=== PATIENT | female | born 1985 | race Hispanic/Latino ===

== ENCOUNTER 2017-12-27 21:32 | Day surgery (SDC) | payer MEDICAID, OTHER ==
[2017-12-27 22:20] LABS: #Eosinphils 0.1 thou/uL (0.0-0.7); #Lymphocytes 1.6 thou/uL (1.20-3.40); #Monocytes 0.7 thou/uL (0.11-0.59); #Neutrophils 5.6 thou/uL (1.40-6.50); %Basophils 0.4 % (0.0-1.0); %Eosinophils 1.5 % (0.0-10.0); %Lymphocytes 20.2 % (21.0-51.0); %Monocytes 9.1 % (0.0-10.0); %Neutrophils 68.8 % (42.0-75.0); Mean Corpuscular HGB CONC 32.6 g/dL (32.0-36.0); Mean Corpuscular Hemoglobin 29.2 pg (27.0-31.0); Mean Corpuscular Volume 89.4 fL (78.0-98.0); Mean Platelet Volume 7.6 fL (7.4-10.4); Platelet Count 249 thou/uL (130-400); RBC Distribution Width 12.2 % (11.5-14.5); Red Blood Cell (RBC) Count 4.44 mill/uL (4.20-5.40); White Blood Cell (WBC) Count 8.1 thou/uL (4.8-10.8)
[2017-12-27] MEDS ORDERED: Morphine 4 MG/ML VIAL ONE (23:14)
[2017-12-27] MEDS ORDERED: Misoprostol 200 MCG TAB ONE (23:31)
[2017-12-27] MEDS ORDERED: Fentanyl 100 MCG/2 ML VIAL ONE (23:32)
[2017-12-28] MEDS ORDERED: Oxytocin 10 UNITS/ML VIAL ONE (00:25)
[2017-12-28] MEDS ORDERED: Promethazine HCl 25 MG/ML VIAL ONE (01:14)
[2017-12-28] MEDS ORDERED: Meperidine HCl/PF 25 MG/ML VIAL ONE (01:22)
--- NOTE | 2017-12-28 02:20 | HP ---
DATE OF EVALUATION: 12/27/2017 REGULAR PHYSICIAN: [facility]. EVALUATING PHYSICIAN: Dejon Zepeda M.D. CHIEF COMPLAINT: Bleeding cramping and passage of tissue at home. HISTORY OF PRESENT ILLNESS: Ms. Vallecillo is a 32-year-old G1, P0 AB1 with a reported rhianna mated date of confinement of 07/09/2018 by a certain last menstrual period of 10/03/2017 who states t hat she was at [facility] earlier today and had 2 ultrasounds that showed no heart ton es. She states that she had bleeding and passage of tissue at home after that time. She brings with her material from home that appears to be an intact fetus. Since that time, she has continued to mercado ve bleeding and cramping. PAST OBSTETRICAL HISTORY: Includes one vaginal delivery at term and one miscarriage. PAST MEDICAL HISTORY: None. PAST SURGICAL HISTORY: Hernia as a child. CURRENT MEDICATIONS: None. ALLERGIES: No known allergies. SOCIAL HISTORY: She denies tobacco, alcohol, or drug use. FAMILY HISTORY: Unremarkable. REVIEW OF SYSTEMS: She denies nausea, vomiting, fever or chills. PHYSICAL EXAMINATION: VITAL SIGNS: In the ER, her vital signs are stable. She is afebrile. CHEST: Clear to auscultation. CARDIOVASCULAR: Regular rate and rhythm. ABDOMEN: Soft and nontender. There is no palpable fundus above the umbilicus. PELVIC: There is tissue in the vagina with moderate amount of bleeding seen. LABORATORY DATA: On CBC, her white count is 8.1. Her hemoglobin is 13.0 and 39.7. Her platelets ar e 249,000. She is O positive with a negative antibody screen. ASSESSMENT: Incomplete . PLAN: At this time, we will take her to the operating room for suction D&C to remove all remaining p lacental fragments. The risks and benefits of this approach have been discussed with her. She under stands the inherent risks of anesthesia, bleeding, infection as well as damage to adjacent organs, re quiring repair, removal or transfusion. She accepts all of these and wishes to proceed.
--- NOTE | 2017-12-28 02:29 | OP ---
DATE OF PROCEDURE: 12/28/2017 PREOPERATIVE DIAGNOSIS: Incomplete . POSTOPERATIVE DIAGNOSIS: Incomplete . PROCEDURE: Suction curettage. SURGEON: Dejon Zepeda M.D. ANESTHESIA: IV sedation. ESTIMATED BLOOD LOSS: 200 mL. DRAINS: None. TECHNIQUE IN DETAIL: After good anesthesia was given, the patient was prepped and draped in the dorsal lithotomy position using the candy cane stirrups. The patient was prepped and draped. The bimanual exam showed the uterus to be approximately 8 weeks in size. There was a large clot of products of conception that was passing through the cervix into the vagina. This was removed with ring forceps. An 8 mm Vacurette was then removed through all quadrants to remove remaining placental fragments. A sharp curet was then passed through all quadrants and no further fragments were obtained. All instruments were then removed from the vagina. Sponge and instrument counts were correct. The patient tolerated the procedure well and was taken to the recovery room in good condition. CHELE
[2017-12-28] MEDS ORDERED: Ondansetron PF 4 MG/2 ML Vial ONE (14:21)
[2017-12-28] MEDS ORDERED: PROPOFOL 200 MG/20 ML VIAL ONE (14:21)
[2017-12-28] MEDS ORDERED: Glycopyrrolate 0.2 MG/ML 5 ML SYRINGE ONE (14:21)
[2017-12-28] MEDS ORDERED: PHENYLEPHRINE-NS 100 MCG/ML 10 ML SYRINGE ONE (14:21)
[2017-12-28] MEDS ORDERED: Lidocaine 1% PF 5 ML VIAL ONE (14:21)
== END 2017-12-28 02:43 | disposition home or self-care (01) ==
LOC: ERS 21:32 → ER/OP 23:53 → SDC/OP 12-28 00:03
PROVIDERS: ATTEND Obstetrics & Gynecology
PROC: 10D17ZZ Extraction of Products of Conception, Retained, Via Natural or Artificial Opening (ICD-10-PCS; principal; 2017-12-28)
DX: O03.1 Delayed or excessive hemorrhage following incomplete spontaneous abortion (principal)
CPT/HCPCS: 36415; 84702; 85025; 86850; 86900; 86901; 88305; 96374; J2001; J2175; J2270; J2405; J2550; J2590; J2704; J3010

== ENCOUNTER 2020-03-28 10:59 | Observation (INO) | payer OTHER, SELFPAY ==
[2020-03-28] MEDS ORDERED: hydrALAZINE 20 MG/ML VIAL SLOW IVP PRN (11:10)
--- NOTE | 2020-03-28 11:15 | PDOC.FPROB ---
FMR OB H&P: HPI - History of Present Illness Chief Complaint: contractions Indentification: 34 yo @ 33.0 wks by 17.4 wk sono History of Present Illness: 34 yo F presents for vaginal contractions that started 3 to 4 days ago and have been regular every 5-15 minutes since yesterday morning. She also reports vaginal pressure. She reports good movement, no LOF, foul smelling discharge with intercourse and spotting 5 days ago that has resolved. She has been eating and drinking well. No fevers/chills or cough. She does report occasional headache and looser stools today but denies diarrhea. Last intercourse was 3 days ago. Denies having anything intravaginal since that time. 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 She does not know if they have had genetic testing. FMR OB H&P: Medications - Current Home Medications: Medication Instructions Recorded Confirmed Type Famotidine 10 mg PO DAILY 03/28/20 03/28/20 History Hydroxyprogesterone Caproat/Pf 1 ml IM SEEPHYS 03/28/20 03/28/20 History [[place] 275 mg/1.1 ml Autoinjct] Mv-Mn/Iron/FA/Herbal/Digestive 1 tablet PO DAILY 03/28/20 03/28/20 History [ One Tablet] Vits96/Iron Fum/Folic 1 each PO DAILY 03/28/20 03/28/20 History [ Tablet] Allergies/Adverse Reactions: Allergies Allergy/AdvReac Type Severity Reaction Status Date / Time No Known Allergies Allergy Unverified 03/28/20 11:52 FMR OB H&P: ROS - Review of Systems General: denies: fever/chills Eyes: denies: eye pain, vision changes ENT: denies: nasal congestion, rhinorrhea, ear pain, sore throat Cardiovascular: reports: palpitation. denies: chest pain Respiratory: denies: cough, congestion, shortness of breath Gastrointestinal: denies: nausea, vomiting, diarrhea, constipation Genitourinary (Female): reports: vaginal bleeding (vaginal spotting 6 days ago), contractions, vaginal pressure. denies: dysuria, hematuria, vaginal discharge Musculoskeletal: reports: other (low back pain, pain in bilateral thighs) Neurologic: denies: numbness, weakness Integumentary: denies: itching, lesions Psychological: denies: depression, anxiety FMR OB H&P: Vital Signs - Maternal Vital signs: BP 110/59 P80 O2 100% on RA - Heart Tones Baseline: 120 Variability: moderate Acceleration: absent Deceleration: absent [place] contractions every: q2min FMR OB H&P: Physical Exam - Physical Exam General: NAD, awake, alert and oriented HEENT: normocephalic and atraumatic, PERRLA, EOMI, MMM, conjunctiva clear, no scleral icterus, grossly normal vision, grossly normal hearing, oropharynx clear, good dention Neck: supple, FROM, trachea midline Heart: RRR, normal S1/S2, no murmurs/rubs/gallops, pulses present, no edema General: CTAB, no respiratory distress, good air movement, no rales/rhonchi Abdomen: soft, gravid, non-tender, bowel sound present Musculoskeletal: pulses present, FROM in all four extremities, no misalignment/asymmetry, no atrophy Neurological: no focal deficit Skin: no rash, good tugor, capillary refill <2 seconds Lymphatic: no unusual bruising or bleeding, no purpura Psychiatric: intact recent and remote memory - Pelvic Exam Vulva: normal hair distribution FMR OB H&P: A/P Discussion: Date/Time: 03/28/20 1113 34 yo @ 33.0 wks by 17.4 wk brendan presents for labor r/o labor r/o -FHTs- moderate, baseline 120, no accels or decels, cxns q2-3 min -FFN collected and cervical length -PCP asked to collect GBS swab -VP3 due to hx of BV and yeast infection -give 1L LR -UA, reflex culture pending -Anterior placenta on previous imaging at [facility] -SVE: fingertip/0/-3 -Recheck SVE in 4 hours to monitor for change Wade Price MD PGY3 This H&P was discussed with Dr. Velasco who agree with the above documentation and plan. Addendum - Attending - Attending Attestation Date/Time: 03/30/201944 I personally evaluated the patient and discussed the management with Dr. Price on 03/28/20. I agree with the History, Examination, Assessment and Plan documented above with any addition or exceptions noted below.
[2020-03-28 11:58] VITALS: BMI 21.2
--- NOTE | 2020-03-28 12:37 | ULT ---
LIMITED OB ULTRASOUND: INDICATION: Assessment of cervical length is requested. FINDINGS/IMPRESSION: Cervical length is recorded at 4.17 cm. The fetus was not evaluated. POS: OFF
[2020-03-28 13:12] LABS: Fetal Fibronectin POSITIVE (Negative)
[2020-03-28 13:13] LABS: FFN Internal QC Analyzer PASS (PASS); FFN Internal QC Cassette PASS (PASS)
[2020-03-28] MEDS ORDERED: Betamet Acet/Betamet Na Ph 30 MG/5 ML VIAL ONE (13:49)
[2020-03-28] MEDS ORDERED: Betamet Acet/Betamet Na Ph 30 MG/5 ML VIAL IM SCH (14:00)
[2020-03-28 14:05] LABS: Bacteria/HPF None Seen HPF (None Seen); Bilirubin Negative (Negative); Blood, Urine Negative (Negative); Clarity Clear (Clear); Glucose, Urine (Dipstick) Normal (Negative); Ketone, Urine 20 mg/dL (Negative); Leukocyte Negative Leu/uL (Negative); Nitrite Negative (Negative); Protein, Urine (Dipstick) Negative (Neg-Trace); RBC/HPF None Seen HPF (0-3); Specific Gravity, Urine 1.004 (1.002-1.036); Squamous Epithelial 0-3 HPF (0-3); Urobilinogen Normal mg/dL (Less than 2); WBC/HPF 0-3 HPF (0-3)
[2020-03-28 14:07] LABS: Urine Culture Reflex No No
--- NOTE | 2020-03-28 14:48 | PDOC.BPN ---
- Brief Progress Note Encounter Date: 03/28/20 Encounter Time: 14:00 Cervical length 4.2 cm FFN positive Patient continues to contract [id number]. UA still pending. Second liter of fluid is being administered. Patient FFN is positive with previous hx of delivery. Will administer celestone. Plan to recheck SVE in 2 hours.
[2020-03-28] MEDS ORDERED: Acetaminophen 500 MG TAB PO SCH ×2 (15:00→15:15)
[2020-03-28] MEDS ORDERED: Promethazine HCl 25 MG/ML VIAL IM PRN (17:12)
[2020-03-28] MEDS ORDERED: Ondansetron PF 4 MG/2 ML Vial IVP PRN (17:12)
[2020-03-28] MEDS ORDERED: Acetaminophen 500 MG TAB PO PRN (17:12)
--- NOTE | 2020-03-28 17:16 | PDOC.BPN ---
- Brief Progress Note Encounter Date: 03/28/20 Encounter Time: 17:00 34 yo @ 33.0 wks by 17.4 wk sono presents for labor r/o labor -FHTs- baseline 130, moderate, accels present no decels, cxn q3 min -FFN+, Cervical length 4.2 cm -GBS swab collected -Continue LR @ 125 ml/hr -UA, reflex culture pending -Anterior placenta on previous imaging at [facility] -SVE: fingertip/th/hi @ 1230 2/th/hi @ 1700, vertex on bedside sono -Recheck in 2 hours Vaginal candidiasis -VP3 collected, will treat empirically with topical clotrimazole Bacterial Vaginosis -hx of BV, reports foul smelling order with intercourse, will treat empirically with oral metronidazole - VP3 pending Wade Price MD PGY3
[2020-03-28] MEDS ORDERED: NIFEdipine 10 MG CAP PO SCH (18:00)
[2020-03-28 18:10] LABS: Hemoglobin 12.2 g/dL (12.0-16.0); Mean Corpuscular HGB CONC 33.1 g/dL (32.0-36.0); Mean Corpuscular Hemoglobin 30.8 pg (27.0-31.0); Mean Corpuscular Volume 93.1 fL (78.0-98.0); Mean Platelet Volume 10.9 fL (7.4-10.4); Platelet Count 200 thou/uL (130-400); RBC Distribution Width 12.5 % (11.5-14.5); Red Blood Cell (RBC) Count 3.95 mill/uL (4.20-5.40); White Blood Cell (WBC) Count 7.9 thou/uL (4.8-10.8)
[2020-03-28 19:09] LABS: Syphilis Antibody Nonreactive (Nonreactive); Syphilis Antibody Index 0.03 S/CO (<1.00 Non-Reactive)
[2020-03-28 19:09] LABS: HBSAg Index 0.24 S/CO (0-0.99); Hep B Surf Ag Non-Reactive S/CO (NonReactive)
[2020-03-28] MEDS ORDERED: Clotrimazole 2% 3 Day Vag Cr 22.2 GM TUBE VAG SCH (21:00)
[2020-03-28] MEDS ORDERED: metroNIDAZOLE 500 MG TAB PO SCH (21:00)
[2020-03-28] MEDS: Lactated Ringer's 1,000 ML IV SCH (21:58)
[2020-03-29 04:21] LABS: SARS-CoV-2 PCR by NAA Not Detected (NotDetected)
[2020-03-29] MEDS: Lactated Ringer's 1,000 ML IV SCH (05:25)
--- NOTE | 2020-03-29 07:19 | PDOC.FM ---
- Subjective Subjective: Patient is feeling well this morning, she ate breakfast. Her headache is resolved. Her back pain is improved. She reports she is still feeling contractions and vaginal pressure, however they have spaced out to every 5-15 minutes. Denies chest pain, palpitation, SOB, cough. - Objective Vital Signs & Weight: Vital Signs (12 hours) Temp Pulse Resp BP 03/29/20 01:40 98.5 F 71 16 97/52 L 03/28/20 19:30 98.7 F 81 18 98/56 L Weight Weight 58.06 kg Result Diagrams: 03/28/20 17:59 Phys Exam - Physical Examination Constitutional: NAD Respiratory: no wheezing, clear to auscultation bilateral Cardiovascular: RRR, no significant murmur Gastrointestinal: soft gravid Musculoskeletal: no edema, pulses present Neurological: non-focal, moves all 4 limbs Psychiatric: normal affect, A&O x 3 Skin: normal turgor, cap refill <2 seconds Dx/Plan - Plan Plan: 34 yo @ 33.1 wks by 17.4 wk sono presented for labor r/o. Hx of delivery at 36.5 wks. labor r/o -NST reactive, cxns currently q5-15 minutes -FFN+, Cervical length 4.2 cm -GBS swab pending -VP3 negative -GC/C pending -Will try to add mycoplasma genitalium send out lab -U culture pending -Anterior placenta on previous imaging at [facility] -SVE: fingertip/th/hi @ 1230 /hi @ 1700, vertex on bedside sono /hi @ 1930 -Plan to recheck SVE later today. 2nd dose of steroids this afternoon at 1400. Plan to DC to home after that if SVE unchanged. Vaginal candidiasis and BV ruled out -VP3 negative, antibiotics stopped Wade Price MD PGY3 Addendum - Attending - Attending Attestation Date/Time: 03/29/20 1250 I personally evaluated the patient and discussed the management with Dr. Price I agree with the History, Examination, Assessment and Plan documented above with any addition or exceptions noted below. 34 yo female at 33.1 wks by 17.4 wk sono with hx of PTL/PTD at 36 wks on 17-OHP now with contractions. Patient continued to do well overnight. Dehydration resolved. No source of infection identified to date. Received BMZ x1. Scheduled to receive BMZ #2 later today. Awaiting send out labs but so far workup is negative. Will repeat exam prior to d/c. Will schedule close follow up outpatient. Saulo
[2020-03-29 08:15] VITALS: BP 110/61; TEMP 98.6
[2020-03-29 12:10] LABS: Reference Lab Name LABCORP
--- NOTE | 2020-03-29 13:03 | PDOC.OBAPN ---
FMR OB AP PN: Sub - Interval History Hospital Day: 1 Chief Complaint: contractions Indentification: 34 yo female at 33.0 wks by 17.4 wk sono Interval History: Reports contractions but has improved and spaced out. Feels dizzy from meds FMR OB AP PN: Obj - Maternal Vital signs: reviewed. - Heart Tones Baseline: 135 Variability: moderate Acceleration: present Deceleration: absent Category: category 1 [place] contractions every: Irregular FMR OB AP PN: Exam - Physical Exam General: NAD, awake, alert and oriented HEENT: normocephalic and atraumatic, EOMI, MMM Abdomen: soft, gravid, fundus(cm) (32), non-tender Deviation from normal: Lower abdominal hernia or rectus diastasis Psychiatric: normal mood and affect - Pelvic Exam Vulva: normal hair distribution Cervix: no blood SVE: 1/thick/high/posterior/medium Membranes: intact FMR OB AP PN: Data - Labs Lab results: Laboratory Results - last 24 hr 03/28/20 03/28/20 03/28/20 12:10 13:26 17:56 WBC RBC Hgb Hct MCV MCH MCHC RDW Plt Count MPV Urine Color Colorless Urine Clarity Clear Urine pH 8.0 Ur Specific [place] 1.004 Urine Protein Negative Urine Glucose (UA) Normal Urine Ketones 20 A Urine Blood Negative Urine Nitrite Negative Urine Bilirubin Negative Urine Urobilinogen Normal Ur Leukocyte Esterase Negative Urine RBC None Seen Urine WBC 0-3 Ur Squamous Epith Cells 0-3 Urine Bacteria None Seen Urine Culture Reflexed No Syphilis IgG/IgM Ab Hep Bs Antigen Non-Reactive SARS CoV-2 Rapid Source SARS-CoV-2 RNA (ZAIRE) Fibronectin POSITIVE Miscellaneous Test Ref Lab Test Name Blood Type Antibody Screen 03/28/20 03/28/20 03/28/20 17:59 17:59 17:59 WBC 7.9 RBC 3.95 L Hgb 12.2 Hct 36.8 MCV 93.1 MCH 30.8 MCHC 33.1 RDW 12.5 Plt Count 200 MPV 10.9 H Urine Color Urine Clarity Urine pH Ur Specific [place] Urine Protein Urine Glucose (UA) Urine Ketones Urine Blood Urine Nitrite Urine Bilirubin Urine Urobilinogen Ur Leukocyte Esterase Urine RBC Urine WBC Ur Squamous Epith Cells Urine Bacteria Urine Culture Reflexed Syphilis IgG/IgM Ab Nonreactive Hep Bs Antigen SARS CoV-2 Rapid Source SARS-CoV-2 RNA (ZAIRE) Fibronectin Miscellaneous Test Ref Lab Test Name Blood Type O POSITIVE Antibody Screen NEGATIVE 03/28/20 03/29/20 18:01 11:15 WBC RBC Hgb Hct MCV MCH MCHC RDW Plt Count MPV Urine Color Urine Clarity Urine pH Ur Specific [place] Urine Protein Urine Glucose (UA) Urine Ketones Urine Blood Urine Nitrite Urine Bilirubin Urine Urobilinogen Ur Leukocyte Esterase Urine RBC Urine WBC Ur Squamous Epith Cells Urine Bacteria Urine Culture Reflexed Syphilis IgG/IgM Ab Hep Bs Antigen SARS CoV-2 Rapid Source Nasopharyngeal Swab SARS-CoV-2 RNA (ZAIRE) Not Detected Fibronectin Miscellaneous Test [facility] Ref Lab Test Name M GENITALIUM Blood Type Antibody Screen - Imaging Imaging: TVUS images reviewed. CL measures between 3.5 to 4 cm. No evidence of funneling but unsure if test done. Os appears closed on sono or .5 to 1 cm. FMR OB AP PN: A/P - Problem List (1) History of labor, current Current Visit: Yes Status: Resolved Code(s): O09.219 - SUPRVSN OF PREG W HISTORY OF PRE-TERM LABOR, UNSP TRIMESTER Qualifiers: Trimester: third trimester Qualified Code(s): O09.213 - Supervision of with history of pre-term labor, third trimester Assessment and Plan: Patient has been receiving treatment with CL screening (now complete) and 17-OHP weekly injections. No prior complications this . At this time patient does not appear to be in labor. However, she is having contractions with questionable cervical change. BMZ course for FLM was started. Incomplete PTL/PTC workup started. Will add vaginal swabs and urine studies. Monitor overnight. Appropriate FHTs. (2) contractions Current Visit: Yes Status: Acute Code(s): O47.9 - FALSE LABOR, UNSPECIFIED Assessment and Plan: Continue to monitor overnight due to history and questionable cervical change. No evidence of labor on my exam. BMZ course started along with tocolytics. Will stop tocolytics but continue BMZ course. Likely underlying infection or inflammation as cause. Swabs collected and sent. Continue 17-OHP injections. Discussed with patient and she agrees. Continue IVFs for now due to concern for dehydration previously. Continue frequent monitoring throughout the night q 4 to 6. Disposition: Keep overnight. Reevalute need for hospitalization in the morning. Signature: Saulo
--- NOTE | 2020-03-29 13:35 | PDOC.OBAPN ---
FMR OB AP PN: Sub - Interval History Hospital Day: 2 Chief Complaint: Contractions Interval History: Contractions have now resolved FMR OB AP PN: Obj - Heart Tones Baseline: 150 Variability: moderate Acceleration: present Deceleration: absent Category: category 1 [place] contractions every: None FMR OB AP PN: Exam - Physical Exam General: NAD General: no respiratory distress Abdomen: gravid Psychiatric: normal mood and affect FMR OB AP PN: Data - Labs Lab results: Laboratory Results - last 24 hr 03/28/20 03/28/20 03/28/20 13:26 17:56 17:59 WBC RBC Hgb Hct MCV MCH MCHC RDW Plt Count MPV Urine Color Colorless Urine Clarity Clear Urine pH 8.0 Ur Specific [place] 1.004 Urine Protein Negative Urine Glucose (UA) Normal Urine Ketones 20 A Urine Blood Negative Urine Nitrite Negative Urine Bilirubin Negative Urine Urobilinogen Normal Ur Leukocyte Esterase Negative Urine RBC None Seen Urine WBC 0-3 Ur Squamous Epith Cells 0-3 Urine Bacteria None Seen Urine Culture Reflexed No Syphilis IgG/IgM Ab Nonreactive Hep Bs Antigen Non-Reactive SARS CoV-2 Rapid Source SARS-CoV-2 RNA (ZAIRE) Miscellaneous Test Ref Lab Test Name Blood Type Antibody Screen 03/28/20 03/28/20 03/28/20 17:59 17:59 18:01 WBC 7.9 RBC 3.95 L Hgb 12.2 Hct 36.8 MCV 93.1 MCH 30.8 MCHC 33.1 RDW 12.5 Plt Count 200 MPV 10.9 H Urine Color Urine Clarity Urine pH Ur Specific [place] Urine Protein Urine Glucose (UA) Urine Ketones Urine Blood Urine Nitrite Urine Bilirubin Urine Urobilinogen Ur Leukocyte Esterase Urine RBC Urine WBC Ur Squamous Epith Cells Urine Bacteria Urine Culture Reflexed Syphilis IgG/IgM Ab Hep Bs Antigen SARS CoV-2 Rapid Source Nasopharyngeal Swab SARS-CoV-2 RNA (ZAIRE) Not Detected Miscellaneous Test Ref Lab Test Name Blood Type O POSITIVE Antibody Screen NEGATIVE 03/29/20 11:15 WBC RBC Hgb Hct MCV MCH MCHC RDW Plt Count MPV Urine Color Urine Clarity Urine pH Ur Specific [place] Urine Protein Urine Glucose (UA) Urine Ketones Urine Blood Urine Nitrite Urine Bilirubin Urine Urobilinogen Ur Leukocyte Esterase Urine RBC Urine WBC Ur Squamous Epith Cells Urine Bacteria Urine Culture Reflexed Syphilis IgG/IgM Ab Hep Bs Antigen SARS CoV-2 Rapid Source SARS-CoV-2 RNA (ZAIRE) Miscellaneous Test [facility] Ref Lab Test Name M GENITALIUM Blood Type Antibody Screen FMR OB AP PN: A/P Disposition: 34 yo @ 33.1 wks by 17.4 wk brendan presented for labor r/o. Hx of delivery at 36.5 wks. labor r/o -NST reactive, cxns previously q5-15 minutes now resolved -FFN+, Cervical length 4.2 cm -GBS swab pending -VP3 negative -GC/C pending -Will try to add mycoplasma genitalium send out lab -U culture pending. Negative at 12 hours -Anterior placenta on previous imaging at [facility] -SVE: fingertip/th/hi @ 1230 /hi @ 1700, vertex on bedside sono /hi @ 1930 -Strip review: cat 1 (+ accels, no decels, mod variability, baseline 130). No contractions present -BMZ #2 scheduled to be given at 1400. Plan to DC to home after that if SVE unchanged. Vaginal candidiasis and BV ruled out -VP3 negative, antibiotics stopped Discussion: Date/Time: 03/29/20 7415 Addendum - Attending - Attending Attestation Date/Time: 03/29/20 1048 I personally evaluated the patient and discussed the management with Dr. Cox I agree with the History, Examination, Assessment and Plan documented above with any addition or exceptions noted below. Repeat exam unchanged. Patient still with intermittent contractions. Infection workup negative thus far. Some swabs pending. Completed BMZ course. Strict precautions discussed. Will follow up closely in clinic. Consider repeat CL next week due to patient's anxiety. Continue 17-OHP until 36.6 wks. Ok to d/c to home. Saulo
--- NOTE | 2020-03-29 15:32 | PDOC.OBAPN ---
FMR OB AP PN: Sub - Interval History Chief Complaint: Contractions Indentification: 34 yo female at 33.0 wks by 17.4 wk sono Interval History: Contractions spaced out, lightheadedness improved FMR OB AP PN: Obj - Maternal Vital signs: Reviewed, BP 98/54 - Heart Tones Variability: moderate Acceleration: present Category: category 1 [place] contractions every: irregular FMR OB AP PN: Exam - Physical Exam General: NAD, awake, alert and oriented HEENT: grossly normal vision, grossly normal hearing Heart: no edema General: no respiratory distress FMR OB AP PN: Data - Labs Lab results: Laboratory Results - last 24 hr 03/28/20 03/28/20 03/28/20 17:56 17:59 17:59 WBC RBC Hgb Hct MCV MCH MCHC RDW Plt Count MPV Syphilis IgG/IgM Ab Nonreactive Hep Bs Antigen Non-Reactive SARS CoV-2 Rapid Source SARS-CoV-2 RNA (ZAIRE) Miscellaneous Test Ref Lab Test Name Blood Type O POSITIVE Antibody Screen NEGATIVE 03/28/20 03/28/20 03/29/20 17:59 18:01 11:15 WBC 7.9 RBC 3.95 L Hgb 12.2 Hct 36.8 MCV 93.1 MCH 30.8 MCHC 33.1 RDW 12.5 Plt Count 200 MPV 10.9 H Syphilis IgG/IgM Ab Hep Bs Antigen SARS CoV-2 Rapid Source Nasopharyngeal Swab SARS-CoV-2 RNA (ZAIRE) Not Detected Miscellaneous Test [facility] Ref Lab Test Name M GENITALIUM Blood Type Antibody Screen FMR OB AP PN: A/P Discussion: Date/Time: 03/29/20 1532 contractions - Patient unlikely to be in labor - lightheadedness improving, likely related to nifedipine, BP stable, dc nifedipine - Contractions improving, patient overall feeling better - Continue BMZ therapy - Will hold off on SVE unless there is change in condition This H&P was discussed with Dr. Fierro who agree with the above documentation and plan.
--- NOTE | 2020-03-29 15:41 | PDOC.OBAPN ---
FMR OB AP PN: Sub - Interval History Indentification: 34 yo female at 33.1 wks by 17.4 wk sono Interval History: No acute events, patient doing well, resting FMR OB AP PN: Obj - Maternal Vital signs: Reviewed, AFVSS - Heart Tones Variability: moderate Acceleration: present Deceleration: absent Category: category 1 [place] contractions every: irregular FMR OB AP PN: Data - Labs Lab results: Laboratory Results - last 24 hr 03/28/20 03/28/20 03/28/20 17:56 17:59 17:59 WBC RBC Hgb Hct MCV MCH MCHC RDW Plt Count MPV Syphilis IgG/IgM Ab Nonreactive Hep Bs Antigen Non-Reactive SARS CoV-2 Rapid Source SARS-CoV-2 RNA (ZAIRE) Miscellaneous Test Ref Lab Test Name Blood Type O POSITIVE Antibody Screen NEGATIVE 03/28/20 03/28/20 03/29/20 17:59 18:01 11:15 WBC 7.9 RBC 3.95 L Hgb 12.2 Hct 36.8 MCV 93.1 MCH 30.8 MCHC 33.1 RDW 12.5 Plt Count 200 MPV 10.9 H Syphilis IgG/IgM Ab Hep Bs Antigen SARS CoV-2 Rapid Source Nasopharyngeal Swab SARS-CoV-2 RNA (ZAIRE) Not Detected Miscellaneous Test [facility] Ref Lab Test Name M GENITALIUM Blood Type Antibody Screen FMR OB AP PN: A/P Discussion: Date/Time: 03/29/20 1540 contractions - Patient unlikely to be in labor, overall feeling better, minimal lightheadedness, resting - Contractions irregular on monitor, spaced out per patient - Continue BMZ therapy - Will hold off on SVE unless there is change in condition This H&P was discussed with Dr. Fierro who agree with the above documentation and plan.
[2020-03-29 20:15] LABS: Chlamydia by PCR Not Detected (NotDetected); GC by PCR Not Detected (NotDetected)
--- NOTE | 2020-03-30 11:05 | DIS ---
DATE OF ADMISSION: 03/28/2020 DATE OF DISCHARGE: 03/29/2020 CONSULTS: None. PROCEDURES: ultrasound 03/28/2020. Cervical length of 4.17 cm. PRIMARY DIAGNOSIS: labor, ruled out. SECONDARY DIAGNOSIS: None. DISCHARGE MEDICATIONS: 1. Famotidine 10 mg p.o. daily. 2. Hydroxyprogesterone/Partridge one injection weekly. 3. vitamin 1 p.o. daily. 4. Multivitamin one p.o. daily. DISCONTINUED MEDICATIONS: None. HISTORY OF PRESENT ILLNESS/HOSPITAL COURSE: A 34-year-old, G4, P 0-1-2-0 at 33.0 weeks by a 17.4 week ultrasound, presented for vaginal contractions that have been occurring for 3 or 4 days and had become more irregular every 5-15 minutes for the day prior to admission. She is also reporting vaginal pressure. She also reported spotting 5 days prior. She denied any flu-like symptoms. She was having headache on admission. However, her blood pressures were normal. Her last Radha injection had been that day. The patient has a history of delivery at 36 and 5 weeks. The patient was tested for a urine infection. UA was normal. However, urine culture is still pending at this time. Gonorrhea, chlamydia, and syphilis were negative. VP3 was negative. Mycoplasma genitalium was collected and those results are pending. The patient was fluid rehydrated. She was given a course of steroids prior to discharge. She received two doses 24 hours apart. Her cervix had not changed to 30% effaced and high from 7:30 PM on admission day to the afternoon on the day of discharge. She was sent home with precautions. Of note, fibronectin was positive. The patient is at risk for delivery. DISPOSITION: Stable. DISCHARGE INSTRUCTIONS: 1. Location: Home. 2. Diet: Regular. 3. Activity: As tolerated. 4. Follow up: With primary care physician Dr. Chand within 1 week. Job ID: [id number]
== END 2020-03-29 14:51 | disposition home health service (06) ==
LOC: L&D/OP 10:59 → L&D 18:12
PROVIDERS: ADMIT Family Medicine; ATTEND Family Medicine
DX: O47.03 False labor before 37 completed weeks of gestation, third trimester (principal); O99.891 Other specified diseases and conditions complicating pregnancy; R10.2 Pelvic and perineal pain; R51.9 Headache, unspecified; O23.43 Unspecified infection of urinary tract in pregnancy, third trimester; O09.213 Supervision of pregnancy with history of pre-term labor, third trimester; Z3A.33 33 weeks gestation of pregnancy; Z79.899 Other long term (current) drug therapy; Z86.19 Personal history of other infectious and parasitic diseases; Z20.822 Contact with and (suspected) exposure to COVID-19
CPT/HCPCS: 36415; 76815; 81001; 82731; 85027; 86780; 86850; 86900; 86901; 87081; 87086; 87340; 87480; 87491; 87510; 87591; 87635; 87660; 96372; G0378; J0702; U0003; U0005